=== PATIENT | male | born 1975 | race Native Hawaiian/Other Pacific Islander ===

== ENCOUNTER 2018-02-20 20:16 | Emergency (ER) | payer OTHER ==
[~2018-02-20] VITALS: Ht 180.3 cm; Wt 100.7 kg
[2018-02-20 22:17] LABS: PLATELET COUNT 175 K/uL (142-355)
[2018-02-20 22:19] LABS: POTASSIUM 3.6 mmol/L (3.6-5.2)
[2018-02-21 00:15] VITALS: BP 115/71; TEMP 97.7
== END 2018-02-21 00:16 | disposition home or self-care (01) ==
LOC: ED 20:16
DX: R19.7 Diarrhea, unspecified (principal); F19.10 Other psychoactive substance abuse, uncomplicated; R10.84 Generalized abdominal pain
CPT/HCPCS: 36415; 80053; 80307; 81000; 85027; 96374; 96375; 99284; J1885; J2405

== ENCOUNTER 2018-03-21 14:05 | Emergency (ER) | payer OTHER ==
[~2018-03-21] VITALS: Ht 180.3 cm; Wt 95.3 kg
[2018-03-21] MEDS ORDERED: CLONIDINE HCL0.1 MG PO (14:31)
[2018-03-21 15:08] LABS: PLATELET COUNT 189 K/uL (142-355)
[2018-03-21 15:14] LABS: POTASSIUM 3.7 mmol/L (3.6-5.2); SODIUM 142 mmol/L (136-145)
[2018-03-21 17:46] VITALS: BP 142/102
== END 2018-03-21 17:47 | disposition home or self-care (01) ==
LOC: ED 14:05
DX: R07.89 Other chest pain (principal); J44.9 Chronic obstructive pulmonary disease, unspecified; I10 Essential (primary) hypertension
CPT/HCPCS: 36415; 80053; 80307; 81000; 82550; 82553; 84484; 85027; 93005; 96374; 99284; J1885